=== PATIENT | male | born 1970 | race African-American/Black ===

== ENCOUNTER 2017-12-10 09:02 | Observation (INO) ==
[2017-12-10] MEDS ORDERED: ONDANSETRON ODT 4 MG TABLET PO PRN (09:29)
[2017-12-10] MEDS ORDERED: ENOXAPARIN 100 MG/ML SYRINGE SUBCUT STA (09:29)
[2017-12-10 09:56] LABS: Basophils % 0.2 % (0.0-0.8); Eosinophils % 0.5 % (0.00-10.9); Hematocrit 45.7 VOL% (42.0-52.0); Hemoglobin 15.3 GM/DL (14.0-18.0); Immature Granulocytes % 0.2 %; Immature Granulocytes Absolute 0.01 #; Lymphocytes # 2.1 10*3/uL (1.4-4.0); Lymphocytes % 34.6 % (21.2-54.2); Mean Corpuscular HGB Conc 33.5 GM/DL (32-36); Mean Corpuscular Hemoglobin 28 PG (27-34); Monocytes # 0.4 10*3/uL (0.11-0.8); Monocytes % 7.4 % (1.7-12.7); Neutrophils # 3.4 10*3/uL (1.4-7.4); Neutrophils % 57.1 % (38.7-73.9); Platelet Count 197 T/CUMM (130-400); Red Blood Count 5.44 MC/CUMM (3.8-5.5); Red Cell Distribution Width 13.5 % (9.3-17.3)
[2017-12-10 10:03] LABS: INR 1.1; PT Patient Result 11.3 SECS; Partial Thromboplastin Time 31.3 SECS (0-40)
[2017-12-10] MEDS ORDERED: ENOXAPARIN 120 MG/0.8 ML SYRINGE SUBCUT ONE (10:04)
[2017-12-10 10:16] LABS: Albumin 4.2 G/DL (3.4-5.0); Calcium 9.5 MG/DL (8.5-10.1); Osmolality,Calculated 279.3 MOS/KG (273-304); Potassium 3.9 MMOL/L (3.5-5.1); Total Protein 7.6 G/DL (6.4-8.3)
[2017-12-10] MEDS ORDERED: ONDANSETRON 4 MG/2 ML VIAL IV PRN (11:26)
[2017-12-10] MEDS ORDERED: LORazepam 1 MG TABLET PO PRN (11:26)
[2017-12-10] MEDS ORDERED: MORPHINE 4 MG/1 ML VIAL IV PRN (11:26)
[2017-12-10] MEDS ORDERED: DOCUSATE SODIUM 100 MG CAPSULE PO PRN (11:26)
[2017-12-10] MEDS ORDERED: ACETAMINOPHEN 325 MG TABLET PO PRN (11:26)
[2017-12-10 11:32] LABS: Apearance,Urine CLEAR (Clear); Bilirubin,Urine Negative (Negative); Blood, Urine Negative (Negative); Glucose,Urine (UA) Negative (Negative); Ketones,Urine Negative (Negative); Nitrite,Urine Negative (Negative); Protein,Urine Negative; RBC,Urine <1 /HPF (0-4); Urine Color Yellow (Yellow); Urine Urobilinogen < 2.0 EU/DL (0.2-1.0)
[2017-12-10 11:49] LABS: Barbiturates Screen,Urine Negative (Negative); Benzodiazepines Screen,Urine Negative (Negative); Cannabinoid Screen,Urine Positive (Negative); Opiate Screen,Urine Negative (Negative); Phencyclidine Screen,Urine Negative (Negative)
[2017-12-10] MEDS: PANTOPRAZOLE 40 MG TABLET PO SCH (12:09)
[2017-12-10] MEDS: ENOXAPARIN 40 MG/0.4 ML SYRINGE SUBCUT SCH (13:09)
[2017-12-10] MEDS: OLMESARTAN 5 MG TABLET PO SCH (14:41)
[2017-12-11 04:16] LABS: Basophils % 0.3 % (0.0-0.8); Eosinophils # 0.1 10*3/uL (0.0-0.87); Eosinophils % 1.2 % (0.00-10.9); Hematocrit 44.7 VOL% (42.0-52.0); Hemoglobin 14.6 GM/DL (14.0-18.0); Immature Granulocytes % 0.1 %; Immature Granulocytes Absolute 0.01 #; Lymphocytes # 3.7 10*3/uL (1.4-4.0); Lymphocytes % 53.8 % (21.2-54.2); Mean Corpuscular HGB Conc 32.7 GM/DL (32-36); Mean Corpuscular Hemoglobin 29 PG (27-34); Mean Corpuscular Volume 87.5 FL (87-102); Mean Platelet Volume 10.5 FL (9.6-12.0); Monocytes # 0.6 10*3/uL (0.11-0.8); Monocytes % 8.5 % (1.7-12.7); Neutrophils # 2.5 10*3/uL (1.4-7.4); Neutrophils % 36.1 % (38.7-73.9); Platelet Count 196 T/CUMM (130-400); Red Blood Count 5.11 MC/CUMM (3.8-5.5); Red Cell Distribution Width 13.7 % (9.3-17.3); White Blood Count 6.8 T/CUMM (4-12)
[2017-12-11 04:50] LABS: Calcium 9.4 MG/DL (8.5-10.1); Osmolality,Calculated 283.1 MOS/KG (273-304); Potassium 4.3 MMOL/L (3.5-5.1); Thyroid Stimulating Hormone 1.19 uIU/ml (0.358-3.74); VLDL CHOLESTEROL 48.8 MG/DL
[2017-12-11 05:09] LABS: Band Neutrophils 2 % (0-10); Eosinophils 2 % (0-10); Lymphocytes 54 % (20-55); Platelet Estimate Normal; Segmented Neutrophils 35 % (50-85); Total Cells Counted 100
[2017-12-11] MEDS ORDERED: OMEGA 3 ACID ETHYL ESTERS 1 GM CAPSULE PO SCH (09:00)
[2017-12-11] MEDS ORDERED: ATORVASTATIN 20 MG TABLET PO SCH (09:00)
[2017-12-11] MEDS: OLMESARTAN 5 MG TABLET PO SCH (10:14)
[2017-12-11] MEDS: PANTOPRAZOLE 40 MG TABLET PO SCH (10:16)
[2017-12-11 12:01] VITALS: BP 130/82
[2017-12-11] MEDS: ENOXAPARIN 40 MG/0.4 ML SYRINGE SUBCUT SCH (14:04)
== END 2017-12-11 14:00 | disposition home or self-care (01) ==
LOC: N.EDINP 09:02 → N.ED 09:02 → N.2W 12:07 → N.TELEN 13:29
PROVIDERS: ADMIT Internal Medicine; ATTEND Internal Medicine